=== PATIENT | male | born 1965 | race Caucasian/White ===

== ENCOUNTER 2020-04-15 14:44 | Emergency (ER) | payer SELFPAY ==
[~2020-04-15] VITALS: Ht 170.2 cm; Wt 92.0 kg
[~2020-04-15 14:44] MED LIST: BP MED UNKNOWN PO; [UNRECOGNIZED DRUG - REMARK] PO
[2020-04-15 16:13] VITALS: BP 145/68
== END 2020-04-15 16:13 | disposition home or self-care (01) | DRG 914 ==
LOC: ED 14:44
DX: S61.442A Puncture wound with foreign body of left hand, initial encounter (principal); F17.210 Nicotine dependence, cigarettes, uncomplicated; X58.XXXA Exposure to other specified factors, initial encounter

== ENCOUNTER 2022-07-28 10:54 | Emergency (ER) | payer OTHER ==
[~2022-07-28] VITALS: Ht 170.2 cm; Wt 95.0 kg
[2022-07-28 11:01] VITALS: BP 160/104
[2022-07-28 11:07] VITALS: BP 171/106
[2022-07-28 12:26] VITALS: BP 166/103
[2022-07-28] MEDS ORDERED: PERCOCET 10/31 COMBO PO (12:48)
[2022-07-28] MEDS ORDERED: NAPROXEN500 MG PO (12:48)
[2022-07-28] MEDS ORDERED: FLEXERIL5 M1 PO (12:48)
[2022-07-28] MEDS ORDERED: MEDDOSEPAK PO (12:48)
[2022-07-28 13:07] VITALS: BP 163/110
== END 2022-07-28 13:09 | disposition home or self-care (01) | DRG 552 ==
LOC: ED 10:54
DX: M54.16 Radiculopathy, lumbar region (principal); F17.210 Nicotine dependence, cigarettes, uncomplicated; I10 Essential (primary) hypertension; E11.9 Type 2 diabetes mellitus without complications; K21.9 Gastro-esophageal reflux disease without esophagitis; Z79.84 Long term (current) use of oral hypoglycemic drugs

== ENCOUNTER 2022-12-04 04:24 | Emergency (ER) | payer OTHER ==
[~2022-12-04] VITALS: Ht 170.2 cm; Wt 90.0 kg
[~2022-12-04 04:24] MED LIST changes: +FLEXERIL5 M1 PO; +MEDDOSEPAK PO; +NAPROXEN500 MG PO; +PERCOCET 10/31 COMBO PO
[2022-12-04] MEDS ORDERED: BACTRIM DS1 TAB PO (04:42)
[2022-12-04 04:53] VITALS: BP 125/86
== END 2022-12-04 05:05 | disposition home or self-care (01) | DRG 603 ==
LOC: ED 04:24
DX: L03.211 Cellulitis of face (principal); I10 Essential (primary) hypertension; E11.9 Type 2 diabetes mellitus without complications; K21.9 Gastro-esophageal reflux disease without esophagitis; M54.2 Cervicalgia; G89.29 Other chronic pain; F17.200 Nicotine dependence, unspecified, uncomplicated

== ENCOUNTER 2023-03-02 03:31 | Emergency (ER) | payer OTHER ==
[~2023-03-02] VITALS: Ht 172.7 cm; Wt 90.7 kg
[~2023-03-02 03:31] MED LIST changes: +BACTRIM DS1 TAB PO
[2023-03-02 03:45] VITALS: BP 147/107
[2023-03-02 04:31] VITALS: BP 126/99
[2023-03-02 04:45] VITALS: BP 139/96
[2023-03-02 05:00] VITALS: BP 154/107
[2023-03-02 05:15] VITALS: BP 149/103
[2023-03-02] MEDS ORDERED: MEDDOSEPAK PO (05:30)
[2023-03-02] MEDS ORDERED: NAPROXEN500 MG PO (05:30)
[2023-03-02] MEDS ORDERED: DIPHENHYDRAM50 M2 PO (05:30)
[2023-03-02 05:32] VITALS: BP 149/103
[2023-03-02] MEDS ORDERED: PREDNISONE20 MG PO (16:35)
[2023-03-02] MEDS ORDERED: EPIPEN 2-P0.3 MG/0.3 SC (16:38)
[2023-03-02] MEDS ORDERED: ZYRTEC10 MG PO (17:37)
[2023-03-02] MEDS ORDERED: METFORMIN HCL500 M1 PO (17:37)
== END 2023-03-02 05:53 | disposition home or self-care (01) | DRG 607 ==
LOC: ED 03:31
DX: L71.8 Other rosacea (principal); S43.401A Unspecified sprain of right shoulder joint, initial encounter; I10 Essential (primary) hypertension; E11.9 Type 2 diabetes mellitus without complications; K21.9 Gastro-esophageal reflux disease without esophagitis; M54.50 Low back pain, unspecified; G89.29 Other chronic pain; F17.210 Nicotine dependence, cigarettes, uncomplicated; W19.XXXA Unspecified fall, initial encounter; T78.40XA Allergy, unspecified, initial encounter; L27.1 Localized skin eruption due to drugs and medicaments taken internally; T39.315A Adverse effect of propionic acid derivatives, initial encounter; F17.200 Nicotine dependence, unspecified, uncomplicated; T38.3X6A Underdosing of insulin and oral hypoglycemic [antidiabetic] drugs, initial encounter; Z91.128 Patient's intentional underdosing of medication regimen for other reason; Z79.84 Long term (current) use of oral hypoglycemic drugs

== ENCOUNTER 2023-03-02 12:36 | Emergency (ER) | payer OTHER ==
[2023-03-02] VITALS (15 sets, daily range): BP systolic 128–172; BP diastolic 81–110
[~2023-03-02] VITALS: Ht 172.7 cm; Wt 82.4 kg
[~2023-03-02 12:36] MED LIST changes: +DIPHENHYDRAM50 M2 PO
[2023-03-02] MEDS ORDERED: PREDNISONE20 MG PO (16:35)
[2023-03-02] MEDS ORDERED: EPIPEN 2-P0.3 MG/0.3 SC (16:38)
[2023-03-02] MEDS ORDERED: METFORMIN HCL500 M1 PO (17:37)
[2023-03-02] MEDS ORDERED: ZYRTEC10 MG PO (17:37)
== END 2023-03-02 17:47 | disposition home or self-care (01) | DRG 607 ==
LOC: ED 12:36
DX: L27.1 Localized skin eruption due to drugs and medicaments taken internally (principal); T39.315A Adverse effect of propionic acid derivatives, initial encounter; I10 Essential (primary) hypertension; E11.9 Type 2 diabetes mellitus without complications; K21.9 Gastro-esophageal reflux disease without esophagitis; M54.50 Low back pain, unspecified; G89.29 Other chronic pain; F17.200 Nicotine dependence, unspecified, uncomplicated; T38.3X6A Underdosing of insulin and oral hypoglycemic [antidiabetic] drugs, initial encounter; Z91.128 Patient's intentional underdosing of medication regimen for other reason; Z79.84 Long term (current) use of oral hypoglycemic drugs